=== PATIENT | female | born 1960 | race African-American/Black ===

== ENCOUNTER 2017-07-25 17:58 | Inpatient (IN) | payer MEDICARE ==
[2017-07-25] MEDS ORDERED: Guaifenesin DM 100-10/5 ML UDCUP PO PRN (20:01)
[2017-07-25] MEDS ORDERED: Acetaminophen 325 MG TAB PO PRN (20:01)
[2017-07-25] MEDS ORDERED: HYDROcodone/Acetaminophen 5/325 mg Tablet PO PRN (20:01)
[2017-07-25] MEDS ORDERED: Enoxaparin Sodium 40 MG/0.4 ML SYRINGE SC SCH (20:15)
[2017-07-25] MEDS ORDERED: Dextrose 5% in Water 1,000 ML IV PRN (20:44)
[2017-07-25] MEDS ORDERED: Dextrose 50% Abboject 50 ML SYRINGE IVP PRN (20:44)
[2017-07-25] MEDS: hydrALAZINE 25 MG TAB PO SCH (21:04)
[2017-07-25] MEDS: Famotidine 20 MG TAB PO SCH (21:04)
[2017-07-25] MEDS: Isosorbide Dinitrate 20 MG TAB PO SCH (21:04)
[2017-07-25] MEDS: Losartan Potassium 25 MG TAB PO SCH (21:05)
[2017-07-25] MEDS: Carvedilol 25 MG TAB PO SCH (21:05)
[2017-07-25] MEDS: Insulin NPH/Reg Insulin Hm 300 UNITS/3 ML VIAL SC SCH (21:05)
[2017-07-25] MEDS: Furosemide 40 MG/4 ML VIAL SLOW IVP SCH (22:05)
[2017-07-26 05:28] LABS: Band 6 % (5-11); Hemoglobin 10.8 g/dL (12.0-16.0); Lymphocytes 20 % (21-51); MDiff Complete? YES; Mean Corpuscular HGB CONC 31.5 g/dL (32.0-36.0); Mean Corpuscular Hemoglobin 31.5 pg (27.0-31.0); Mean Corpuscular Volume 99.9 fl (81.0-99.0); Mean Platelet Volume 9.5 fL (7.4-10.4); Monocytes 5 % (0-10); Neutrophil 69 % (42-75); PLT Morphology Comment Appears Adequate; Platelet Count 142 thou/uL (130-400); RBC Distribution Width 14.2 % (11.5-14.5); Red Blood Cell (RBC) Count 3.43 mill/uL (4.20-5.40); White Blood Cell (WBC) Count 7.2 thou/uL (4.8-10.8)
[2017-07-26 05:46] LABS: Anion Gap 12 mmol/L (10-20); BUN (Urea Nitrogen) 26 mg/dL (9.8-20.1); Calc. Creatinine Clearance 72 mL/min (70-130); Calcium 9.5 mg/dL (7.8-10.44); Carbon Dioxide 33 mmol/L (22-29); Chloride 99 mmol/L (98-107); Estimated GFR-MDRD 39; Glucose 222 mg/dL (70-105); Potassium 4.2 mmol/L (3.5-5.1); Sodium 140 mmol/L (136-145)
[2017-07-26] MEDS: Furosemide 40 MG/4 ML VIAL SLOW IVP SCH ×3 (05:56→22:31)
[2017-07-26] MEDS ORDERED: Furosemide 40 MG/4 ML VIAL SLOW IVP SCH (06:00)
--- NOTE | 2017-07-26 06:43 | HP ---
CHIEF COMPLAINT: Shortness of breath and transfer from the hospital in the [facility]. HISTORY OF PRESENT ILLNESS: She is a 57-year-old woman with a history of congestive heart failure status post AICD. She presented to the [facility] over there with a complaint of shortness of breath and flu-like symptoms and fever for the last few days. The patient has not been taking her furosemide and aldactonebecause she is not feeling good for the last few days and denies any gaining weight. When she went to the ER over there, her pulse was 110, blood pressure 96/74, temperature is 101.8, respirations 26, 100% saturation on room air. Over there, she was admitted for diagnosed pneumonia, possible congestive heart failure, pneumonia with acute on chronic congestive heart failure. She was given IV Levaquin, IV Lasix, and transferred here for the further management. CURRENT MEDICATIONS TAKING AT HOME: Hydralazine 50 mg, Imdur 30 mg daily, losartan 25 daily, Aldactone 25 daily, torsemide 20 mg daily. ALLERGIES: She is allergic to PENICILLIN caused itching. PRIMARY CARE PHYSICIAN: Evelyn Quick M.D. FAMILY HISTORY: reviewed and not pertinent to current illness SOCIAL HISTORY: She denies alcohol, drugs, or smoke use. REVIEW OF SYSTEMS: Constitutional: She complains of some fever, malaise, weight gain. HEENT: No ear discharge. No vision problem. Respiratory: She has a cough and shortness of breath with wheezing. Cardiovascular: she is complaining of short of breath. No chest pain. PND, orthopnea is present. Gastrointestinal: She denies any nausea, vomiting, abdominal pain. Extremities : No any pain. Neurological: She denies any headache, no dizziness. Skin: No rash. PHYSICAL EXAMINATION: GENERAL: She is a middle-aged woman, not in distress. Morbidly obese. VITAL SIGNS: Pulse 102, temperature 99.3, saturation are 93 on room air, and blood pressure 198/111. HEENT: Head is atraumatic and normocephalic.EOMI NECK: Supple, no JVD, no thyromegaly,Trachea in midline and no LN janusz CHEST: Diminished breath sounds. coarse crackles at bases CARDIOVASCULAR: S1, S2 audible. No S3 or S4. ABDOMEN: Soft. Bowel sounds audible. EXTREMITIES: +2 pedal edema. NEUROLOGIC: Alert and oriented x3. No focal deficit. LABORATORY DATA: Urine shows urine negative. Her EKG shows sinus tachycardia with left anterior fascicular block. WBC 11.3, hematocrit 37.6, hemoglobin 12.1 , platelets 175. Sodium 133, potassium 5. BUN 20, creatinine 1.2, AST 35, ALT 42. Flu test negative. Troponin is 0.07. Urine clear. Chest x-ray negative. ASSESSMENT AND PLAN: 1. Fever with possible cough with shortness of breath, possible bronchitis. We will plan to give intravenous Levaquin daily and oxygen on admission and Mucinex DM p.r.n. 2. History of congestive heart failure due to chronic congestive failure. Fluid restriction, daily weight, Lasix, echocardiogram, monitor intake and output. 3. Hypertension. We will continue Cozaar and Imdur. 4. Deep venous thrombosis prophylaxis with Lovenox. MTDD
[2017-07-26] MEDS: Losartan Potassium 25 MG TAB PO SCH ×2 (09:05→22:20)
[2017-07-26] MEDS: Carvedilol 25 MG TAB PO SCH ×2 (09:05→20:43)
[2017-07-26] MEDS: hydrALAZINE 25 MG TAB PO SCH ×2 (09:05→22:18)
[2017-07-26] MEDS: Famotidine 20 MG TAB PO SCH ×2 (09:05→20:42)
[2017-07-26] MEDS: Spironolactone 25 MG TAB PO SCH (09:05)
[2017-07-26] MEDS: Aspirin 81 mg Enteric Coated Tablet PO SCH (09:05)
[2017-07-26] MEDS: Isosorbide Dinitrate 20 MG TAB PO SCH ×2 (09:12→22:20)
[2017-07-26] MEDS: Insulin NPH/Reg Insulin Hm 300 UNITS/3 ML VIAL SC SCH ×2 (09:59→22:19)
[2017-07-26] MEDS: HumaLOG 300 UNITS/3 ML VIAL SC PRN ×3 (10:00→17:42)
--- NOTE | 2017-07-26 12:42 | PDOC.PN ---
- Subjective Encounter Start Date: 07/26/17 Encounter Start Time: 12:40 Subjective: Pt seen and examined for Bronchitis, CHF -: feels better, c/o wheezing, low grade fever - Objective Resuscitation Status: Resuscitation Status FULL:Full Resuscitation MAR Reviewed: Yes Vital Signs & Weight: Vital Signs (12 hours) Temp Pulse Resp BP BP BP Pulse Ox 07/26/17 11:59 98.7 F 84 20 120/73 95 07/26/17 10:40 81 20 97 07/26/17 10:00 99.8 F H 87 20 96 07/26/17 09:05 87 129/72 07/26/17 09:01 99.8 F H 87 20 129/72 96 07/26/17 04:00 99.3 F 84 18 130/68 97 Weight Weight 265 lb 6.4 oz I&O: 07/25/17 07/26/17 07/27/17 06:59 06:59 06:59 Intake Total 240 Output Total 500 Balance -260 Result Diagrams: 07/26/17 04:30 07/26/17 04:30 Additional Labs: Accuchecks 07/26/17 07/26/17 07/26/17 11:44 09:16 05:56 POC Glucose 171 H 161 H 214 H 07/25/17 20:31 POC Glucose 303 H Phys Exam - Physical Examination HEENT: PERRLA, moist MMs, sclera anicteric, TM's clear, oral pharynx no lesions , 2+ tonsils Neck: no nodes, no JVD, supple, full ROM Respiratory: wheezing present Diminished breath sounds, few crakles Cardiovascular: RRR, no significant murmur, no rub, gallop, irregular Gastrointestinal: soft, non-tender, no distention, positive bowel sounds Musculoskeletal: no edema, pulses present, edema present Neurological: non-focal, normal sensation, moves all 4 limbs Psychiatric: normal affect, A&O x 3 Dx/Plan - Plan continue antibiotics, DVT proph w/lovenox 1) Bronchitis, Possible Pneumonia, IV Levaquin -: 2Contact with Flu, tamiflu 30mg po bid for 5 vdays -: 3 Acute on chronic CHF, Diuretics, daily weight and fluid restriction, Echo -: 4Type 2 DM, on insulin -: 5DVT Prophylaxis, Lovenox * . Review of Systems - Review of Systems Eyes: negative: Pain, Vision Change, Conjunctivae Inflammation, Eyelid Inflammation, Redness, Other ENT: negative: Ear Pain, Ear Discharge, Nose Pain, Nose Discharge, Nose Congestion, Mouth Pain, Mouth Swelling, Throat Pain, Throat Swelling, Other Respiratory: Cough, Shortness of Breath, Sputum, Wheezing Cardiovascular: negative: chest pain, palpitations, orthopnea, paroxysmal nocturnal dyspnea, edema, light headedness, other Gastrointestinal: negative: Nausea, Vomiting, Abdominal Pain, Diarrhea, Constipation, Melena, Hematochezia, Other Genitourinary: negative: Dysuria, Frequency, Incontinence, Hematuria, Retention , Other Musculoskeletal: negative: Neck Pain, Shoulder Pain, Arm Pain, Back Pain, Hand Pain, Leg Pain, Foot Pain, Other - Medications/Allergies Allergies/Adverse Reactions: Allergies Allergy/AdvReac Type Severity Reaction Status Date / Time penicillin V Allergy Verified 07/25/17 22:19 Medications: Current Medications Acetaminophen (Tylenol) 650 mg PO Q4H PRN PRN Reason: Headache/Fever or Pain Hydrocodone Bitart/Acetaminophen ([place] 5/325) 1 tab PO Q4H PRN PRN Reason: Moderate Pain (4-6) Albuterol/Ipratropium (Duoneb) 3 ml NEB Q4H PRN PRN Reason: SOB &/or Wheezing Aspirin (Ecotrin) 81 mg PO DAILY [facility] Last Admin: 07/26/17 09:05 Dose: 81 mg Carvedilol (Coreg) 25 mg PO BID [facility] Last Admin: 07/26/17 09:05 Dose: 25 mg Dextrose/Water (Dextrose 50%) 25 gm IVP PRN PRN PRN Reason: HYPOGLYCEMIA PROTOCOL Famotidine (Pepcid) 20 mg PO BID [facility] Last Admin: 07/26/17 09:05 Dose: 20 mg Furosemide (Lasix) 40 mg SLOW IVP Q8HR [facility] Last Admin: 07/26/17 05:56 Dose: 40 mg Glucagon (Glucagon) 1 mg IM PRN PRN PRN Reason: HYPOGLYCEMIA PROTOCOL Guaifenesin/Dextromethorphan (Robitussin Dm) 15 ml PO Q4H PRN PRN Reason: Cough Hydralazine HCl (Apresoline) 50 mg PO BID [facility] Last Admin: 07/26/17 09:05 Dose: 50 mg Dextrose/Water (D5w) 1,000 mls @ 0 mls/hr IV INF PRN; As Directed PRN Reason: HYPOGLYCEMIA PROTOCOL Levofloxacin 750 mg/ Device 150 mls @ 100 mls/hr IVPB Q24HR [facility] Insulin Human Isoph/Insulin Regular (Humulin 70/30) 50 units SC BID [facility] Last Admin: 07/26/17 09:59 Dose: Not Given Insulin Human Lispro (Humalog) 0 units SC .MILD SLIDING SCALE PRN; Protocol PRN Reason: MILD SLIDING SCALE Last Admin: 07/26/17 12:03 Dose: 2 unit Insulin Human Lispro (Humalog) 0 units SC .BEDTIME SLIDING SC PRN; Protocol PRN Reason: BEDTIME SLIDING SCALE Isosorbide Dinitrate (Isordil) 30 mg PO BID [facility] Last Admin: 07/26/17 09:12 Dose: 30 mg Losartan Potassium (Cozaar) 25 mg PO BID [facility] Last Admin: 07/26/17 09:05 Dose: 25 mg Sodium Chloride (Flush - Normal Saline) 10 ml IVF Q12HR [facility] Last Admin: 07/26/17 09:16 Dose: 10 ml Sodium Chloride (Flush - Normal Saline) 10 ml IVF PRN PRN PRN Reason: Saline Flush Last Admin: 07/26/17 05:56 Dose: 10 ml Spironolactone (Aldactone) 25 mg PO QAM-WM [facility] Last Admin: 07/26/17 09:05 Dose: 25 mg
[2017-07-26] MEDS ORDERED: Oseltamivir 6 MG/ML ORAL SUSP PO SCH (13:00)
[2017-07-26] MEDS: Enoxaparin Sodium 40 MG/0.4 ML SYRINGE SC SCH (20:42)
[2017-07-26] MEDS: Oseltamivir 6 MG/ML ORAL SUSP PO SCH (22:31)
[2017-07-27] MEDS: Furosemide 40 MG/4 ML VIAL SLOW IVP SCH (05:31)
--- NOTE | 2017-07-27 08:41 | PDOC.PN ---
- Subjective Encounter Start Date: 07/27/17 Encounter Start Time: 09:00 Subjective: Feeling a little better. Still with cough and SOB. No fever/chills. - Objective Resuscitation Status: Resuscitation Status FULL:Full Resuscitation MAR Reviewed: Yes Vital Signs & Weight: Vital Signs (12 hours) Temp Pulse Resp BP Pulse Ox 07/27/17 05:29 98 07/27/17 04:00 98.4 F 69 18 118/73 95 07/26/17 22:18 95 07/26/17 22:15 82 115/70 Weight Weight 263 lb I&O: 07/26/17 07/27/17 07/28/17 06:59 06:59 06:59 Intake Total 240 1300 Output Total 500 2050 Balance -260 -750 Result Diagrams: 07/26/17 04:30 07/27/17 08:44 Additional Labs: Accuchecks 07/27/17 07/26/17 07/26/17 06:15 21:00 16:44 POC Glucose 231 H 209 H 261 H 07/26/17 07/26/17 11:44 09:16 POC Glucose 171 H 161 H Phys Exam - Physical Examination HEENT: moist MMs Respiratory: no wheezing, no rales, no rhonchi Cardiovascular: RRR Gastrointestinal: soft, positive bowel sounds Neurological: non-focal, moves all 4 limbs Psychiatric: normal affect, A&O x 3 Dx/Plan (1) Pneumonia Code(s): J18.9 - PNEUMONIA, UNSPECIFIED ORGANISM Status: Acute Comment: check CXR here, on Levaquin (2) Systolic CHF Code(s): I50.20 - UNSPECIFIED SYSTOLIC (CONGESTIVE) HEART FAILURE Status: Acute Qualifiers: Congestive heart failure chronicity: chronic Qualified Code(s): I50.22 - Chronic systolic (congestive) heart failure Comment: ECHO pending, check BNP, d/c IV lasix as Creatinine bumped over baseline (3) Influenza Code(s): J11.1 - FLU DUE TO UNIDENTIFIED INFLUENZA VIRUS W OTH RESP MANIFEST Status: Acute Comment: flu contact now with fever and URI, on Tamiflu (4) CKD (chronic kidney disease) stage 3, GFR 30-59 ml/min Status: Chronic (5) DM type 2 (diabetes mellitus, type 2) Status: Chronic Qualifiers: Diabetes mellitus complication detail: with chronic kidney disease Diabetes mellitus terminal worker insulin use: without terminal worker use (6) Morbid obesity Code(s): E66.01 - MORBID (SEVERE) OBESITY DUE TO EXCESS CALORIES Status: Chronic - Plan cont current plan of care, continue antibiotics, PT/OT, DVT proph w/lovenox, DVT proph w/SCDs * . - Discharge Day Encounter end time: 09:30
[2017-07-27] MEDS: Spironolactone 25 MG TAB PO SCH (08:55)
[2017-07-27] MEDS: Aspirin 81 mg Enteric Coated Tablet PO SCH (08:55)
[2017-07-27] MEDS: Carvedilol 25 MG TAB PO SCH ×2 (08:55→22:19)
[2017-07-27] MEDS: Losartan Potassium 25 MG TAB PO SCH ×2 (08:57→22:18)
[2017-07-27] MEDS: Isosorbide Dinitrate 20 MG TAB PO SCH ×2 (08:57→22:18)
[2017-07-27] MEDS: Oseltamivir 6 MG/ML ORAL SUSP PO SCH ×2 (08:57→22:23)
[2017-07-27] MEDS: hydrALAZINE 25 MG TAB PO SCH ×2 (08:57→22:20)
[2017-07-27] MEDS ORDERED: Insulin NPH/Reg Insulin Hm 300 UNITS/3 ML VIAL SC SCH (09:00)
[2017-07-27 09:12] LABS: Anion Gap 15 mmol/L (10-20); BUN (Urea Nitrogen) 40 mg/dL (9.8-20.1); Calc. Creatinine Clearance 55 mL/min (70-130); Calcium 9.4 mg/dL (7.8-10.44); Carbon Dioxide 28 mmol/L (22-29); Chloride 98 mmol/L (98-107); Estimated GFR-MDRD 29; Glucose 220 mg/dL (70-105); Potassium 4.3 mmol/L (3.5-5.1); Sodium 137 mmol/L (136-145)
[2017-07-27] MEDS: Torsemide 20 MG TAB PO SCH ×2 (09:35→22:21)
--- NOTE | 2017-07-27 11:47 | RAD ---
PA AND LATERAL VIEWS CHEST: HISTORY: Pneumonia. COMPARISON: 10/16/2016 FINDINGS: The heart is enlarged. The left-sided AICD remains in place. There is mild pulmonary vascular conge stion. No lobar consolidation, pneumothoraces, or large effusions are seen. POS: [facility]
[2017-07-27] MEDS: HumaLOG 300 UNITS/3 ML VIAL SC PRN ×2 (13:19→22:35)
[2017-07-27] MEDS: Insulin NPH/Reg Insulin Hm 300 UNITS/3 ML VIAL SC SCH (17:18)
[2017-07-27] MEDS: Enoxaparin Sodium 40 MG/0.4 ML SYRINGE SC SCH (22:20)
[2017-07-28 05:34] LABS: #Basophils 0.1 thou/uL (0.0-0.2); #Lymphocytes 2.1 thou/uL (1.20-3.40); #Monocytes 0.7 thou/uL (0.11-0.59); #Neutrophils 2.8 thou/uL (1.40-6.50); %Basophils 1.7 % (0.0-1.0); %Eosinophils 0.2 % (0.0-10.0); %Lymphocytes 36.2 % (21.0-51.0); %Monocytes 12.8 % (0.0-10.0); Hemoglobin 11.3 g/dL (12.0-16.0); Mean Corpuscular HGB CONC 31.4 g/dL (32.0-36.0); Mean Corpuscular Hemoglobin 31.7 pg (27.0-31.0); Mean Platelet Volume 9.3 fL (7.4-10.4); Platelet Count 146 thou/uL (130-400); RBC Distribution Width 14.1 % (11.5-14.5); Red Blood Cell (RBC) Count 3.56 mill/uL (4.20-5.40); White Blood Cell (WBC) Count 5.7 thou/uL (4.8-10.8)
[2017-07-28 05:42] LABS: Anion Gap 15 mmol/L (10-20); BUN (Urea Nitrogen) 53 mg/dL (9.8-20.1); Calc. Creatinine Clearance 46 mL/min (70-130); Calcium 9.4 mg/dL (7.8-10.44); Carbon Dioxide 28 mmol/L (22-29); Chloride 97 mmol/L (98-107); Estimated GFR-MDRD 23; Glucose 112 mg/dL (70-105); Potassium 4.1 mmol/L (3.5-5.1); Sodium 136 mmol/L (136-145)
--- NOTE | 2017-07-28 07:34 | PDOC.PN ---
- Subjective Encounter Start Date: 07/28/17 Encounter Start Time: 07:32 Subjective: seen and examined feeling better - Objective Resuscitation Status: Resuscitation Status FULL:Full Resuscitation Vital Signs & Weight: Vital Signs (12 hours) Temp Pulse Resp BP BP Pulse Ox 07/28/17 05:15 98 07/28/17 04:00 98.7 F 78 18 101/55 L 95 07/27/17 22:20 79 132/75 07/27/17 20:00 98.2 F 79 20 132/75 98 Weight Weight 263 lb I&O: 07/27/17 07/28/17 07/29/17 06:59 06:59 06:59 Intake Total 1300 150 Output Total 2049 1200 Balance -750 -1050 Result Diagrams: 07/28/17 04:16 07/28/17 04:16 Additional Labs: Accuchecks 07/28/17 07/27/17 07/27/17 06:27 20:42 17:22 POC Glucose 101 212 H 273 H 07/27/17 11:43 POC Glucose 254 H Phys Exam - Physical Examination Constitutional: NAD HEENT: PERRLA, moist MMs, sclera anicteric, TM's clear Neck: no nodes, no JVD, supple, full ROM Respiratory: no wheezing, no rales, no rhonchi Cardiovascular: RRR, no significant murmur, no rub Gastrointestinal: soft, non-tender, no distention, positive bowel sounds Musculoskeletal: no edema, pulses present Dx/Plan (1) Influenza Code(s): J11.1 - FLU DUE TO UNIDENTIFIED INFLUENZA VIRUS W OTH RESP MANIFEST Status: Acute Comment: flu contact now with fever and URI, on Tamiflu (2) Pneumonia Code(s): J18.9 - PNEUMONIA, UNSPECIFIED ORGANISM Status: Acute Comment: check CXR here, on Levaquin (3) Systolic CHF Code(s): I50.20 - UNSPECIFIED SYSTOLIC (CONGESTIVE) HEART FAILURE Status: Acute Qualifiers: Congestive heart failure chronicity: chronic Qualified Code(s): I50.22 - Chronic systolic (congestive) heart failure Comment: ECHO pending, check BNP, d/c IV lasix as Creatinine bumped over baseline (4) Acute exacerbation of CHF (congestive heart failure) Code(s): I50.9 - HEART FAILURE, UNSPECIFIED Status: Acute Qualifiers: Congestive heart failure type: systolic Qualified Code(s): I50.23 - Acute on chronic systolic (congestive) heart failure Comment: ef of around 25% (5) Demand ischemia of myocardium Code(s): I24.8 - OTHER FORMS OF ACUTE ISCHEMIC HEART DISEASE Status: Acute (6) CKD (chronic kidney disease) stage 3, GFR 30-59 ml/min Status: Chronic (7) DM type 2 (diabetes mellitus, type 2) Status: Chronic Qualifiers: Diabetes mellitus complication detail: with chronic kidney disease Diabetes mellitus usp insulin use: without usp use (8) Morbid obesity Code(s): E66.01 - MORBID (SEVERE) OBESITY DUE TO EXCESS CALORIES Status: Chronic (9) OPAL (acute kidney injury) Code(s): N17.9 - ACUTE KIDNEY FAILURE, UNSPECIFIED Status: Acute - Plan continue antibiotics, social work job titles, respiratory therapy change levaquine to po -: creatinine [id number] diuresis * .
[2017-07-28] MEDS: Insulin NPH/Reg Insulin Hm 300 UNITS/3 ML VIAL SC SCH ×2 (09:17→18:07)
[2017-07-28] MEDS: Spironolactone 25 MG TAB PO SCH (09:18)
[2017-07-28] MEDS: hydrALAZINE 25 MG TAB PO SCH ×2 (09:18→21:54)
[2017-07-28] MEDS: Carvedilol 25 MG TAB PO SCH ×2 (09:18→21:54)
[2017-07-28] MEDS: Torsemide 20 MG TAB PO SCH ×2 (09:18→21:56)
[2017-07-28] MEDS: Aspirin 81 mg Enteric Coated Tablet PO SCH (09:19)
[2017-07-28] MEDS: Isosorbide Dinitrate 20 MG TAB PO SCH ×2 (09:19→21:55)
[2017-07-28] MEDS: Oseltamivir 6 MG/ML ORAL SUSP PO SCH ×2 (09:19→22:00)
[2017-07-28] MEDS: Losartan Potassium 25 MG TAB PO SCH ×2 (09:19→21:55)
[2017-07-28] MEDS: Enoxaparin Sodium 40 MG/0.4 ML SYRINGE SC SCH (21:10)
--- NOTE | 2017-07-28 23:07 | RAD ---
AP VIEW OF THE CHEST: INDICATIONS: Shortness of breath. COMPARISON: 07/27/2017 IMPRESSION: Cardiomegaly with pulmonary vascular congestion persists. No focal consolidation is evident. AICD i s similar appearing. No pneumothorax is noted. POS: [facility]
[2017-07-29] MEDS: Spironolactone 25 MG TAB PO SCH (09:12)
[2017-07-29] MEDS: hydrALAZINE 25 MG TAB PO SCH ×2 (09:13→22:53)
[2017-07-29] MEDS: Aspirin 81 mg Enteric Coated Tablet PO SCH (09:13)
[2017-07-29] MEDS: Isosorbide Dinitrate 20 MG TAB PO SCH ×2 (09:13→22:53)
[2017-07-29] MEDS: Carvedilol 25 MG TAB PO SCH ×2 (09:13→22:53)
[2017-07-29] MEDS: Losartan Potassium 25 MG TAB PO SCH (09:14)
[2017-07-29] MEDS: Torsemide 20 MG TAB PO SCH (09:14)
[2017-07-29] MEDS: Oseltamivir 6 MG/ML ORAL SUSP PO SCH ×2 (09:14→23:03)
[2017-07-29] MEDS: Insulin NPH/Reg Insulin Hm 300 UNITS/3 ML VIAL SC SCH ×2 (09:19→16:45)
--- NOTE | 2017-07-29 13:43 | PDOC.PN ---
- Subjective Encounter Start Date: 07/29/17 Encounter Start Time: 09:50 Subjective: awake, not fully oriented -: no sob - Objective Resuscitation Status: Resuscitation Status FULL:Full Resuscitation MAR Reviewed: Yes Vital Signs & Weight: Vital Signs (12 hours) Temp Pulse Resp BP BP Pulse Ox 07/29/17 12:00 97.7 F 77 18 131/62 100 07/29/17 09:13 73 07/29/17 09:05 98.0 F 73 20 138/82 100 07/29/17 04:00 98.0 F 74 20 135/71 97 Weight Weight 274 lb 11.2 oz I&O: 07/28/17 07/29/17 07/30/17 06:59 06:59 06:59 Intake Total 490 1120 Output Total 1775 750 Balance -1285 370 Result Diagrams: 07/28/17 04:16 07/28/17 04:16 Additional Labs: Accuchecks 07/29/17 07/29/17 07/28/17 10:40 06:30 16:37 POC Glucose 126 H 163 H 180 H Phys Exam - Physical Examination HEENT: PERRLA, moist MMs Neck: no JVD, supple Respiratory: no wheezing rales+ Cardiovascular: RRR, no significant murmur Gastrointestinal: soft, non-tender, positive bowel sounds Musculoskeletal: pulses present, edema present Neurological: non-focal, moves all 4 limbs Dx/Plan (1) OPAL (acute kidney injury) Code(s): N17.9 - ACUTE KIDNEY FAILURE, UNSPECIFIED Status: Acute (2) Influenza Code(s): J11.1 - FLU DUE TO UNIDENTIFIED INFLUENZA VIRUS W OTH RESP MANIFEST Status: Acute Comment: on Tamiflu (3) Pneumonia Code(s): J18.9 - PNEUMONIA, UNSPECIFIED ORGANISM Status: Acute Comment: on Levaquin (4) Acute exacerbation of CHF (congestive heart failure) Code(s): I50.9 - HEART FAILURE, UNSPECIFIED Status: Acute Qualifiers: Congestive heart failure type: systolic Qualified Code(s): I50.23 - Acute on chronic systolic (congestive) heart failure Comment: ef of around 25% (5) CKD (chronic kidney disease) stage 3, GFR 30-59 ml/min Status: Chronic (6) DM type 2 (diabetes mellitus, type 2) Status: Chronic Qualifiers: Diabetes mellitus complication detail: with chronic kidney disease Diabetes mellitus termite helper insulin use: without nursing home use Chronic kidney disease stage: stage 3 (moderate) (7) Morbid obesity Code(s): E66.01 - MORBID (SEVERE) OBESITY DUE TO EXCESS CALORIES Status: Chronic - Plan is on tamiflu, levaquin -: off diuretics, opal -: on coreg, hydralazine, isordil -: CT brain if still confused by this evening -: PT to mobilize as tolerated * . Review of Systems - Medications/Allergies Allergies/Adverse Reactions: Allergies Allergy/AdvReac Type Severity Reaction Status Date / Time penicillin V Allergy Verified 07/25/17 22:19 Medications: Current Medications Acetaminophen (Tylenol) 650 mg PO Q4H PRN PRN Reason: Headache/Fever or Pain Hydrocodone Bitart/Acetaminophen ([place] 5/325) 1 tab PO Q4H PRN PRN Reason: Moderate Pain (4-6) Albuterol/Ipratropium (Duoneb) 3 ml NEB Q4H PRN PRN Reason: SOB &/or Wheezing Last Admin: 07/28/17 11:45 Dose: 3 ml Aspirin (Ecotrin) 81 mg PO DAILY [facility] Last Admin: 07/29/17 09:13 Dose: 81 mg Carvedilol (Coreg) 25 mg PO BID [facility] Last Admin: 07/29/17 09:13 Dose: 25 mg Dextrose/Water (Dextrose 50%) 25 gm IVP PRN PRN PRN Reason: HYPOGLYCEMIA PROTOCOL Enoxaparin Sodium (Lovenox) 40 mg SC QPM [facility] Last Admin: 07/28/17 21:10 Dose: 40 mg Glucagon (Glucagon) 1 mg IM PRN PRN PRN Reason: HYPOGLYCEMIA PROTOCOL Guaifenesin/Dextromethorphan (Robitussin Dm) 15 ml PO Q4H PRN PRN Reason: Cough Hydralazine HCl (Apresoline) 50 mg PO BID [facility] Last Admin: 07/29/17 09:13 Dose: 50 mg Dextrose/Water (D5w) 1,000 mls @ 0 mls/hr IV INF PRN; As Directed PRN Reason: HYPOGLYCEMIA PROTOCOL Insulin Human Isoph/Insulin Regular (Humulin 70/30) 50 units SC BID[facility] Last Admin: 07/29/17 09:19 Dose: Not Given Insulin Human Lispro (Humalog) 0 units SC .MILD SLIDING SCALE PRN; Protocol PRN Reason: MILD SLIDING SCALE Last Admin: 07/27/17 13:19 Dose: 4 unit Insulin Human Lispro (Humalog) 0 units SC .BEDTIME SLIDING SC PRN; Protocol PRN Reason: BEDTIME SLIDING SCALE Last Admin: 07/27/17 22:35 Dose: 2 unit Isosorbide Dinitrate (Isordil) 30 mg PO BID [facility] Last Admin: 07/29/17 09:13 Dose: 30 mg Levofloxacin (Levaquin) 750 mg PO Q2D@0600 [facility] Last Admin: 07/29/17 06:05 Dose: 750 mg Losartan Potassium (Cozaar) 25 mg PO BID [facility] Last Admin: 07/29/17 09:14 Dose: 25 mg Oseltamivir Phosphate (Tamiflu) 30 mg PO BID [facility] Stop: 07/30/17 21:01 Last Admin: 07/29/17 09:14 Dose: 30 mg Sodium Chloride (Flush - Normal Saline) 10 ml IVF Q12HR [facility] Last Admin: 07/29/17 09:14 Dose: Not Given Sodium Chloride (Flush - Normal Saline) 10 ml IVF PRN PRN PRN Reason: Saline Flush Last Admin: 07/26/17 14:27 Dose: 10 ml Spironolactone (Aldactone) 25 mg PO QAM-WM [facility] Last Admin: 07/29/17 09:12 Dose: 25 mg Torsemide (Demadex) 20 mg PO BID [facility] Last Admin: 07/29/17 09:14 Dose: 20 mg
--- NOTE | 2017-07-29 18:34 | CT ---
CT OF THE BRAIN WITHOUT CONTRAST: Indication: History of disorientation and flu. Comparison: None. FINDINGS: No acute infarction, hemorrhage, or hydrocephalus is present. The septum pellucidum and third ventric le are midline. Extracranial soft tissues are within normal limits. Mastoid air cells are clear. Visu alized paranasal sinuses are clear. IMPRESSION: No acute intracranial abnormality. POS: [facility]
--- NOTE | 2017-07-29 19:13 | CON ---
DATE OF CONSULTATION: 07/29/2017 CONSULTING PHYSICIAN: Dr. Shaw. REASON FOR CONSULTATION: Acute kidney injury. REASON FOR ADMISSION: Shortness of breath. HISTORY OF PRESENT ILLNESS: A 57-year-old female with history of congestive heart failure, AICD placement, and hypertension, who came to the hospital with shortness of breath and was evaluated and treated for CHF exacerbation. This patient was found to have creatinine elevation. This morning, it was found to be 2.5. Nephrology was consulted. Diuretics were held. The patient is feeling slightly better. No fever or chills. No nausea or vomiting. No chest pain reported. PAST MEDICAL HISTORY: Positive for congestive heart failure, hypertension. PAST SURGICAL HISTORY: AICD placement. HOME MEDICATIONS: Include losartan, Demadex, Coreg, aspirin, isosorbide, hydralazine, spironolactone. ALLERGIES: PENICILLIN. SOCIAL HISTORY: No smoking, alcohol, or drugs. FAMILY HISTORY: No history of kidney disease. REVIEW OF SYSTEMS: The following complete review of systems was negative, unless otherwise mentioned in the HPI or below: Constitutional: Weight loss or gain, ability to conduct usual activities. Skin: Rash, itching. Eyes: Double vision, pain. ENT/Mouth: Nose bleeding, neck stiffness, pain, tenderness. Cardiovascular: Palpitations, dyspnea on exertion, orthopnea. Respiratory: Shortness of breath, wheezing, cough, hemoptysis, fever or night sweats. Gastrointestinal: Poor appetite, abdominal pain, heartburn, nausea, vomiting, constipation, or diarrhea. Genitourinary: Urgency, frequency, dysuria, nocturia. Musculoskeletal: Pain, swelling. Neurologic/Psychiatric: Anxiety, depression. Allergy/Immunologic: Skin rash, bleeding tendency. PHYSICAL EXAMINATION: GENERAL: This is a well-built female, in no apparent distress. VITAL SIGNS: Temperature 97.7, pulse 77, respiratory rate 18, blood pressure 131/62. Musculoskeletal : No tenderness, 1+ edema HEENT: Atraumatic normocephalic Neck: Supple Cardiovascular: S1S2 heard, Rate and rhythm regular Respiratory: Clear to auscultation Gastrointestinal: Abdomen is soft Dermatologic : No skin rash Neurologic: slow to react Psychiatric: Mood and affect normal LABORATORY DATA: Potassium is 4.1, BUN 53, creatinine is 2.5. ASSESSMENT AND PLAN: 1. Acute kidney injury, most likely cardiorenal syndrome. Agree with holding diuretics for now. 2. Anemia. 3. Cardiorenal syndrome. 4. Edema, controlled. 5. Hypertension. Plan is to hold diuretics. Avoid nephrotoxins, renally dose all the medicines. Follow with Cardiology. Consider changing Lovenox to heparin. Given the acute kidney injury, agree with holding ARBs and diuretics. Thank you for the consult. We will follow. [facility]
[2017-07-29] MEDS: Enoxaparin Sodium 40 MG/0.4 ML SYRINGE SC SCH (22:54)
[2017-07-30] MEDS: Insulin NPH/Reg Insulin Hm 300 UNITS/3 ML VIAL SC SCH ×2 (08:30→17:39)
[2017-07-30] MEDS: Aspirin 81 mg Enteric Coated Tablet PO SCH (09:22)
[2017-07-30] MEDS: Carvedilol 25 MG TAB PO SCH ×2 (09:23→10:52)
[2017-07-30] MEDS: hydrALAZINE 25 MG TAB PO SCH ×2 (09:23→21:41)
[2017-07-30] MEDS: Isosorbide Dinitrate 20 MG TAB PO SCH ×2 (09:23→21:41)
[2017-07-30] MEDS: Oseltamivir 6 MG/ML ORAL SUSP PO SCH ×2 (09:23→21:41)
[2017-07-30 10:23] LABS: #Basophils 0.1 thou/uL (0.0-0.2); #Monocytes 0.7 thou/uL (0.11-0.59); %Basophils 1.5 % (0.0-1.0); %Eosinophils 0.2 % (0.0-10.0); %Lymphocytes 29.3 % (21.0-51.0); %Monocytes 10.8 % (0.0-10.0); %Neutrophils 58.2 % (42.0-75.0); Hemoglobin 12.3 g/dL (12.0-16.0); Mean Corpuscular HGB CONC 32.2 g/dL (32.0-36.0); Mean Corpuscular Hemoglobin 31.9 pg (27.0-31.0); Mean Corpuscular Volume 99.2 fl (81.0-99.0); Mean Platelet Volume 9.5 fL (7.4-10.4); Platelet Count 129 thou/uL (130-400); Red Blood Cell (RBC) Count 3.85 mill/uL (4.20-5.40); White Blood Cell (WBC) Count 6.8 thou/uL (4.8-10.8)
[2017-07-30 10:47] LABS: Base Excess (BEa) 1.5 mEq/L (0 (+/-) 2.5); CO2 Tension 59.4 mmHg (35.0-45.0); Calcium, Ionized 1.2 mmol/L (1.12-1.30); Hematocrit-ABG 40.7 % (36.0-47.0); O2 Tension (PaO2) 77.4 mmHg (80.0-100.0); pH, Arterial 7.31 (7.35-7.45)
[2017-07-30 10:50] LABS: Anion Gap 17 mmol/L (10-20); BUN (Urea Nitrogen) 73 mg/dL (9.8-20.1); Calc. Creatinine Clearance 52 mL/min (70-130); Calcium 9.6 mg/dL (7.8-10.44); Carbon Dioxide 27 mmol/L (22-29); Chloride 98 mmol/L (98-107); Estimated GFR-MDRD 26; Glucose 210 mg/dL (70-105); Potassium 4.9 mmol/L (3.5-5.1); Sodium 137 mmol/L (136-145)
[2017-07-30 10:53] LABS: Puncture Site RB
--- NOTE | 2017-07-30 12:11 | PDOC.PN ---
- Subjective Encounter Start Date: 07/30/17 Encounter Start Time: 11:00 Subjective: lethargic, snoring with nose stuffed up -: code kristofer called for unresponsiveness this am - Objective Resuscitation Status: Resuscitation Status FULL:Full Resuscitation MAR Reviewed: Yes Vital Signs & Weight: Vital Signs (12 hours) Temp Pulse Pulse Pulse Pulse Resp Resp 07/30/17 11:37 97.7 F 68 16 07/30/17 10:39 57 L 54 L 56 L 18 07/30/17 09:23 53 L 07/30/17 08:37 97.2 F L 53 L 18 07/30/17 04:00 97.5 F L 67 20 07/30/17 00:32 76 18 Resp Resp BP BP BP BP Pulse Ox 07/30/17 11:37 126/60 96 07/30/17 10:39 18 18 160/77 H 165/90 H 158/94 H 07/30/17 09:23 07/30/17 08:37 148/91 H 99 07/30/17 04:00 131/79 96 07/30/17 00:32 138/67 94 L Pulse Ox Pulse Ox Pulse Ox 07/30/17 11:37 07/30/17 10:39 96 97 98 07/30/17 09:23 07/30/17 08:37 07/30/17 04:00 07/30/17 00:32 Weight Weight 272 lb 6.4 oz I&O: 07/29/17 07/30/17 07/31/17 06:59 06:59 06:59 Intake Total 1120 1140 Output Total 750 600 Balance 370 540 Result Diagrams: 07/30/17 10:10 07/30/17 10:10 Additional Labs: Accuchecks 07/30/17 07/29/17 07/29/17 06:48 21:37 16:48 POC Glucose 209 H 211 H 184 H Phys Exam - Physical Examination HEENT: PERRLA, sclera anicteric Neck: no JVD, supple Respiratory: no wheezing, no rales rhonchi+ Cardiovascular: RRR, no significant murmur Gastrointestinal: soft, non-tender, positive bowel sounds Musculoskeletal: no edema, pulses present Neurological: non-focal, moves all 4 limbs Dx/Plan (1) OPAL (acute kidney injury) Code(s): N17.9 - ACUTE KIDNEY FAILURE, UNSPECIFIED Status: Acute (2) Influenza Code(s): J11.1 - FLU DUE TO UNIDENTIFIED INFLUENZA VIRUS W OTH RESP MANIFEST Status: Acute Comment: on Tamiflu (3) Pneumonia Code(s): J18.9 - PNEUMONIA, UNSPECIFIED ORGANISM Status: Acute Comment: on Levaquin (4) Acute exacerbation of CHF (congestive heart failure) Code(s): I50.9 - HEART FAILURE, UNSPECIFIED Status: Acute Qualifiers: Congestive heart failure type: systolic Qualified Code(s): I50.23 - Acute on chronic systolic (congestive) heart failure Comment: ef of around 25% (5) CKD (chronic kidney disease) stage 3, GFR 30-59 ml/min Status: Chronic (6) DM type 2 (diabetes mellitus, type 2) Status: Chronic Qualifiers: Diabetes mellitus complication detail: with chronic kidney disease Diabetes mellitus termite control servicer insulin use: without jail use Chronic kidney disease stage: stage 3 (moderate) (7) Morbid obesity Code(s): E66.01 - MORBID (SEVERE) OBESITY DUE TO EXCESS CALORIES Status: Chronic - Plan cautious hydration -: appears to be at her baseline cognitive function -: has sleep apnea, mild elevation in pco2 on ABG, to wear cpap when sleeping -: PT to mobilize pt more -: dc plan based on PT advice * . Review of Systems - Medications/Allergies Allergies/Adverse Reactions: Allergies Allergy/AdvReac Type Severity Reaction Status Date / Time penicillin V Allergy Verified 07/25/17 22:19 Medications: Current Medications Acetaminophen (Tylenol) 650 mg PO Q4H PRN PRN Reason: Headache/Fever or Pain Albuterol/Ipratropium (Duoneb) 3 ml NEB [id number] [facility] Aspirin (Ecotrin) 81 mg PO DAILY [facility] Last Admin: 07/30/17 09:22 Dose: 81 mg Carvedilol (Coreg) 6.25 mg PO BID-WM [facility] Dextrose/Water (Dextrose 50%) 25 gm IVP PRN PRN PRN Reason: HYPOGLYCEMIA PROTOCOL Enoxaparin Sodium (Lovenox) 40 mg SC QPM [facility] Last Admin: 07/29/17 22:54 Dose: 40 mg Glucagon (Glucagon) 1 mg IM PRN PRN PRN Reason: HYPOGLYCEMIA PROTOCOL Guaifenesin/Dextromethorphan (Robitussin Dm) 15 ml PO Q4H PRN PRN Reason: Cough Last Admin: 07/29/17 22:48 Dose: 15 ml Hydralazine HCl (Apresoline) 50 mg PO BID [facility] Last Admin: 07/30/17 09:23 Dose: 50 mg Dextrose/Water (D5w) 1,000 mls @ 0 mls/hr IV INF PRN; As Directed PRN Reason: HYPOGLYCEMIA PROTOCOL Sodium Chloride (Normal Saline 0.9%) 1,000 mls @ 50 mls/hr IV .Q20H [facility] Insulin Human Isoph/Insulin Regular (Humulin 70/30) 50 units SC BID-[facility] Last Admin: 07/30/17 08:30 Dose: Not Given Insulin Human Lispro (Humalog) 0 units SC .MILD SLIDING SCALE PRN; Protocol PRN Reason: MILD SLIDING SCALE Last Admin: 07/27/17 13:19 Dose: 4 unit Insulin Human Lispro (Humalog) 0 units SC .BEDTIME SLIDING SC PRN; Protocol PRN Reason: BEDTIME SLIDING SCALE Last Admin: 07/27/17 22:35 Dose: 2 unit Isosorbide Dinitrate (Isordil) 30 mg PO BID [facility] Last Admin: 07/30/17 09:23 Dose: 30 mg Levofloxacin (Levaquin) 750 mg PO Q2D@0600 [facility] Last Admin: 07/29/17 06:05 Dose: 750 mg Oseltamivir Phosphate (Tamiflu) 30 mg PO BID [facility] Stop: 07/30/17 21:01 Last Admin: 07/30/17 09:23 Dose: 30 mg Sodium Chloride (Flush - Normal Saline) 10 ml IVF Q12HR [facility] Last Admin: 07/30/17 09:24 Dose: 10 ml Sodium Chloride (Flush - Normal Saline) 10 ml IVF PRN PRN PRN Reason: Saline Flush Last Admin: 07/26/17 14:27 Dose: 10 ml
[2017-07-30] MEDS: Sodium Chloride 0.9% 1,000 ML IV SCH (12:15)
[2017-07-30] MEDS: Carvedilol 6.25 MG TAB PO SCH (18:00)
--- NOTE | 2017-07-30 18:48 | PRG ---
DATE OF SERVICE: 07/30/2017 SUBJECTIVE: Patient was seen and examined at bedside. The patient is not very responsive today, act rosalee miner was called after I saw her. OBJECTIVE: GENERAL: This is an elderly female, not responding very well. VITAL SIGNS: Temperature 97.7, pulse 68, respiratory rate 16, blood pressure 167/75. HEENT: Atraumatic, normocephalic. Oral mucosa is moist. NECK: Supple. CARDIOVASCULAR: S1, S2 heard. Rate and rhythm regular. RESPIRATORY: Clear to auscultation. GASTROINTESTINAL: Abdomen is soft. MUSCULOSKELETAL: No tenderness. No edema. DERMATOLOGIC: No skin rash. NEUROLOGIC: Alert and awake and oriented x3. No focal neurologic deficits. Moving all the extremiti es. PSYCHIATRIC: Mood and affect normal. LABORATORY DATA: Potassium 4.9, BUN 73, creatinine is 2.3 from 2.5. ASSESSMENT AND PLAN: 1. Acute kidney injury. Renal function is better after holding diuretics. Cautious hydration if to lerated. 2. Cardiorenal syndrome. 3. Edema, controlled. 4. Hypertension. Plan is to hold diuretics if tolerated and avoid nephrotoxins and we will follow.
[2017-07-30] MEDS: Enoxaparin Sodium 40 MG/0.4 ML SYRINGE SC SCH (21:40)
--- NOTE | 2017-07-31 00:47 | CON ---
DATE OF CONSULTATION: 07/30/2017 CONSULTING PHYSICIAN: Hospitalist Service. IMPRESSION: Probable orthostatic syncopal-seizure episode. PLAN: Check orthostatic blood pressures. Ms. Guzman is a 57-year-old woman with several ongoing medical problems including CHF and diabetes. She also has a pacemaker in place. She has a known ejection fraction of around 25-30%. She apparent ly was helped to a standing position by the nurses. There was some type of seizure-like episode that occurred. Patient has never had a seizure in the past. She does not really recall any of the detai ls. She had a CT of the brain done which was unremarkable. Her lab study notable for a CO2 of 59, O 2 of 77, BUN 73 and creatinine of 2.134. Patient does not have any focal complaints. PAST MEDICAL HISTORY: Diabetes, CHF, obesity. PAST SURGICAL HISTORY: Pacemaker implantation. FAMILY HISTORY: Noncontributory. SOCIAL HISTORY: No illicit drug use. ALLERGIES: PENICILLIN. MEDICATIONS: List was reviewed. REVIEW OF SYSTEMS: Otherwise, negative for headache, nausea, vomiting, vertigo or chest pain. PHYSICAL EXAMINATION: GENERAL: She is an obese middle-aged woman lying in bed in no distress. HEENT: Pupils equal and reactive. Conjunctivae clear. Oropharynx clear. NECK: Supple. EXTREMITIES: No cyanosis. NEUROLOGIC: She is a bit tired, but followed commands appropriately. Her speech was fluent and marcelo r. Cranial nerves were intact. Motor exam showed symmetric strength. Tone was normal bilaterally. No abnormal movements were seen. Gait was not tested. Sensory was intact to light touch bilaterall y. SUMMARY: I suspect that she had an orthostatic hypotensive event as a likely etiology for her sympto ms. I would rule this out before considering a primary neurologic event.
[2017-07-31 06:44] LABS: Anion Gap 17 mmol/L (10-20); BUN (Urea Nitrogen) 71 mg/dL (9.8-20.1); Calc. Creatinine Clearance 58 mL/min (70-130); Calcium 9.7 mg/dL (7.8-10.44); Carbon Dioxide 25 mmol/L (22-29); Chloride 100 mmol/L (98-107); Estimated GFR-MDRD 29; Glucose 180 mg/dL (70-105); Potassium 4.5 mmol/L (3.5-5.1); Sodium 137 mmol/L (136-145)
[2017-07-31] MEDS: Carvedilol 6.25 MG TAB PO SCH ×2 (08:36→17:17)
[2017-07-31] MEDS: Insulin NPH/Reg Insulin Hm 300 UNITS/3 ML VIAL SC SCH ×2 (08:36→17:28)
[2017-07-31] MEDS: Isosorbide Dinitrate 20 MG TAB PO SCH ×2 (08:37→21:32)
[2017-07-31] MEDS: Sodium Chloride 0.9% 1,000 ML IV SCH (08:37)
[2017-07-31] MEDS: hydrALAZINE 25 MG TAB PO SCH ×2 (08:37→21:32)
[2017-07-31] MEDS: Aspirin 81 mg Enteric Coated Tablet PO SCH (08:37)
--- NOTE | 2017-07-31 11:39 | PDOC.PN ---
- Subjective Encounter Start Date: 07/31/17 Encounter Start Time: 09:50 Subjective: responds well to first 2 questions then gives a blank stare -: no chest pain or sob -: not getting up much from bed, was watching tv before I came in - Objective Resuscitation Status: Resuscitation Status FULL:Full Resuscitation MAR Reviewed: Yes Vital Signs & Weight: Vital Signs (12 hours) Temp Pulse Resp BP Pulse Ox 07/31/17 08:31 87 16 07/31/17 08:30 87 L 07/31/17 08:20 98.4 F 84 28 H 147/65 H 98 07/31/17 03:05 61 18 93 L 07/31/17 00:28 71 20 89 L Weight Weight 270 lb 14.4 oz I&O: 07/30/17 07/31/17 08/01/17 06:59 06:59 06:59 Intake Total 1140 720 Output Total 600 350 Balance 540 370 Result Diagrams: 07/30/17 10:10 07/31/17 05:49 Additional Labs: Accuchecks 07/31/17 07/30/17 07/30/17 05:40 20:03 17:36 POC Glucose 168 H 160 H 180 H 07/30/17 07/30/17 11:54 10:48 POC Glucose 202 H 176 H Phys Exam - Physical Examination HEENT: PERRLA, sclera anicteric Neck: no JVD, supple Respiratory: no wheezing, no rales Cardiovascular: RRR, no significant murmur Gastrointestinal: soft, positive bowel sounds distention+, no rigidity or guarding Musculoskeletal: pulses present, edema present Neurological: non-focal, moves all 4 limbs Dx/Plan (1) OPAL (acute kidney injury) Code(s): N17.9 - ACUTE KIDNEY FAILURE, UNSPECIFIED Status: Acute Comment: resolving (2) Influenza Code(s): J11.1 - FLU DUE TO UNIDENTIFIED INFLUENZA VIRUS W OTH RESP MANIFEST Status: Resolved Comment: finished course of Tamiflu (3) Pneumonia Code(s): J18.9 - PNEUMONIA, UNSPECIFIED ORGANISM Status: Acute Comment: on Levaquin (4) Acute exacerbation of CHF (congestive heart failure) Code(s): I50.9 - HEART FAILURE, UNSPECIFIED Status: Chronic Qualifiers: Congestive heart failure type: systolic Qualified Code(s): I50.23 - Acute on chronic systolic (congestive) heart failure Comment: ef of around 25% (5) CKD (chronic kidney disease) stage 3, GFR 30-59 ml/min Status: Chronic (6) DM type 2 (diabetes mellitus, type 2) Status: Chronic Qualifiers: Diabetes mellitus complication detail: with chronic kidney disease Diabetes mellitus terminal supervisor insulin use: without terminal supervisor use Chronic kidney disease stage: stage 3 (moderate) (7) Morbid obesity Code(s): E66.01 - MORBID (SEVERE) OBESITY DUE TO EXCESS CALORIES Status: Chronic (8) Encephalopathy Code(s): G93.40 - ENCEPHALOPATHY, UNSPECIFIED Status: Acute - Plan change levaquin to 250mg daily -: renal function holding up -: still has encephalopathy, will r/o organic issues first -: will get CT chest/abd and pelvis, unclear if any etiology for above, not mu -: -ch history or symptoms from patient * . Review of Systems - Medications/Allergies Allergies/Adverse Reactions: Allergies Allergy/AdvReac Type Severity Reaction Status Date / Time penicillin V Allergy Verified 07/25/17 22:19 Medications: Current Medications Acetaminophen (Tylenol) 650 mg PO Q4H PRN PRN Reason: Headache/Fever or Pain Albuterol/Ipratropium (Duoneb) 3 ml NEB [id number] [facility] Last Admin: 07/31/17 08:31 Dose: 3 ml Aspirin (Ecotrin) 81 mg PO DAILY [facility] Last Admin: 07/31/17 08:37 Dose: 81 mg Carvedilol (Coreg) 6.25 mg PO BID-WM [facility] Last Admin: 07/31/17 08:36 Dose: 6.25 mg Dextrose/Water (Dextrose 50%) 25 gm IVP PRN PRN PRN Reason: HYPOGLYCEMIA PROTOCOL Enoxaparin Sodium (Lovenox) 40 mg SC QPM [facility] Last Admin: 07/30/17 21:40 Dose: 40 mg Glucagon (Glucagon) 1 mg IM PRN PRN PRN Reason: HYPOGLYCEMIA PROTOCOL Guaifenesin/Dextromethorphan (Robitussin Dm) 15 ml PO Q4H PRN PRN Reason: Cough Last Admin: 07/29/17 22:48 Dose: 15 ml Hydralazine HCl (Apresoline) 50 mg PO BID [facility] Last Admin: 07/31/17 08:37 Dose: 50 mg Dextrose/Water (D5w) 1,000 mls @ 0 mls/hr IV INF PRN; As Directed PRN Reason: HYPOGLYCEMIA PROTOCOL Sodium Chloride (Normal Saline 0.9%) 1,000 mls @ 50 mls/hr IV .Q20H [facility] Last Admin: 07/31/17 08:37 Dose: Not Given Insulin Human Isoph/Insulin Regular (Humulin 70/30) 50 units SC BID[facility] Last Admin: 07/31/17 08:36 Dose: Not Given Insulin Human Lispro (Humalog) 0 units SC .MILD SLIDING SCALE PRN; Protocol PRN Reason: MILD SLIDING SCALE Last Admin: 07/27/17 13:19 Dose: 4 unit Insulin Human Lispro (Humalog) 0 units SC .BEDTIME SLIDING SC PRN; Protocol PRN Reason: BEDTIME SLIDING SCALE Last Admin: 07/27/17 22:35 Dose: 2 unit Isosorbide Dinitrate (Isordil) 30 mg PO BID [facility] Last Admin: 07/31/17 08:37 Dose: 30 mg Levofloxacin (Levaquin) 750 mg PO Q2D@0600 [facility] Last Admin: 07/31/17 05:58 Dose: 750 mg Sodium Chloride (Flush - Normal Saline) 10 ml IVF Q12HR [facility] Last Admin: 07/31/17 08:38 Dose: 10 ml Sodium Chloride (Flush - Normal Saline) 10 ml IVF PRN PRN PRN Reason: Saline Flush Last Admin: 07/26/17 14:27 Dose: 10 ml
[2017-07-31] MEDS ORDERED: cefTRIAXone\\ROCEPHIN 1 GM in Sodium Chloride 0.9% 100 ML IVPB SCH (12:00)
[2017-07-31] MEDS: cefTRIAXone\\ROCEPHIN 1 GM, Syringe 0.4 ML in Sterile Water 9.6 ML SLOW IVP SCH ×2 (13:31→16:05)
--- NOTE | 2017-07-31 15:27 | CT ---
CT CHEST WITHOUT CONTRAST: CT ABDOMEN WITHOUT CONTRAST: CT PELVIS WITHOUT CONTRAST: HISTORY: Altered mental status. Abdominal distention. Shortness of breath. COMPARISON: CTA chest from 2014. FINDINGS: The exam is extremely limited due to the patient's arms being down, causing some photon starvation in the lower chest and upper abdomen. Atelectatic changes are present in the lung bases. The heart si ze is enlarged. In the right upper lobe, there are some air space opacities. No significant pericar dial effusion. The thyroid is visualized and is unremarkable. The liver is markedly enlarged. Trace perihepatic as cites. Numerous calcified fibroids. Small, fat-containing umbilical hernia with some edema within the fat. There are dilated right-great qs-coiw-egwc gonadal veins. No evidence for bowel obstruction. The appendix is visualized and appea rs normal. No free intraperitoneal gas is present. Nonspecific inguinal lymph nodes are present. The aortoiliac contour is nonaneurysmal. Mild third spacing and anasarca. There is a somewhat lobular contour of the superior pole left kidne y. The pancreas is unremarkable. The gallbladder is unremarkable. No hydroureteronephrosis or nephroureterolithiasis. No secondary e vidence of a recently passed stone. Mild degenerative changes of the hips. 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 No compression fracture is appreciated. No displaced rib fracture. IMPRESSION: 1. Faint right upper lobe air space opacity may reflect infectious, aspiration, or maybe even atelec tasis. 2. Marked cardiomegaly. 3. Hepatomegaly. 4. Mild third spacing and anasarca. 5. Markedly enlarged fibroid uterus. 6. Dilated gonadal veins suggest pelvic congestion syndrome. 7. Small fat-containing umbilical hernia with some mild edema within the fat, which may be sequela o f vascular congestion, less likely ischemic change. Recommend correlation for focal tenderness over the umbilicus. 8. Skin thickening of the anterior abdominal wall, which may be sequela of vascular congestion. 9. There is also skin thickening throughout the visualized abdomen and pelvis. 10. Lumbosacral transitional vertebra. POS: [facility]
[2017-07-31] MEDS: Enoxaparin Sodium 40 MG/0.4 ML SYRINGE SC SCH (21:29)
--- NOTE | 2017-08-01 00:11 | PRG ---
DATE OF SERVICE: 07/31/2017 SUBJECTIVE: The patient was slightly confused. OBJECTIVE: GENERAL: Obese female, slightly confused. VITAL SIGNS: Temperature 98.9, pulse 84, respiratory rate 16, blood pressure 140/60. HEENT: Atraumatic, normocephalic. Oral mucosa is moist NECK: Supple. CARDIOVASCULAR: S1 and S2 heard. Rate and rhythm regular. RESPIRATORY: Clear to auscultation. GASTROINTESTINAL: Abdomen is soft. MUSCULOSKELETAL: No tenderness. No edema. DERMATOLOGIC: No skin rash. NEUROLOGIC: Alert and awake and oriented X3, No focal neurologic deficits. Moving all the extremitie s. PSYCHIATRIC: Mood and affect normal. LABORATORY DATA: Creatinine is 2.1, potassium is 4.5. ASSESSMENT AND PLAN: 1. Acute kidney injury on chronic kidney disease. Renal function is stable, holding diuretics and n ephrotoxins. 2. Edema, controlled. 3. Hypertension. 4. Morbid obesity. Plan is to continue on dialysis. Continue to monitor renal function off nephrotoxins.
[2017-08-01] MEDS: Sodium Chloride 0.9% 1,000 ML IV SCH (06:49)
[2017-08-01] MEDS: hydrALAZINE 25 MG TAB PO SCH ×3 (09:43→22:13)
[2017-08-01] MEDS: Azithromycin 250 MG TAB PO SCH ×2 (09:44→11:15)
[2017-08-01] MEDS: Aspirin 81 mg Enteric Coated Tablet PO SCH ×2 (09:44→11:15)
[2017-08-01] MEDS: Isosorbide Dinitrate 20 MG TAB PO SCH ×3 (09:44→22:13)
[2017-08-01] MEDS: Carvedilol 6.25 MG TAB PO SCH ×3 (09:45→18:18)
[2017-08-01] MEDS: Insulin NPH/Reg Insulin Hm 300 UNITS/3 ML VIAL SC SCH ×2 (09:47→18:16)
[2017-08-01 10:28] LABS: #Basophils 0.1 thou/uL (0.0-0.2); #Lymphocytes 1.8 thou/uL (1.20-3.40); #Monocytes 0.7 thou/uL (0.11-0.59); #Neutrophils 5.1 thou/uL (1.40-6.50); %Basophils 0.9 % (0.0-1.0); %Eosinophils 0.1 % (0.0-10.0); %Monocytes 9.5 % (0.0-10.0); %Neutrophils 66.4 % (42.0-75.0); Hemoglobin 11.7 g/dL (12.0-16.0); Mean Corpuscular HGB CONC 31.9 g/dL (32.0-36.0); Mean Corpuscular Hemoglobin 31.8 pg (27.0-31.0); Mean Corpuscular Volume 99.7 fl (81.0-99.0); Platelet Count 137 thou/uL (130-400); RBC Distribution Width 14.1 % (11.5-14.5); Red Blood Cell (RBC) Count 3.69 mill/uL (4.20-5.40); White Blood Cell (WBC) Count 7.6 thou/uL (4.8-10.8)
[2017-08-01 10:36] LABS: INR-International Normal Ratio 1.2; PTT 25.5 SEC (22.9-36.1)
[2017-08-01 10:48] LABS: CKMB 2.5 ng/mL (0-6.6); Troponin I 0.064 ng/mL (< 0.028)
--- NOTE | 2017-08-01 11:04 | CT ---
CT OF HEAD WITHOUT CONTRAST: CLINICAL HISTORY: Stroke, altered mental status. COMPARISON: Reference is made to 07/29/17 exam. FINDINGS: There is a subtle, intervally developed subcortical hypodensity of the left frontal lobe. No intracr anial hemorrhage, mass effect, midline shift, or ventriculomegaly. Paranasal sinuses reveal minimal mucosal thickening. IMPRESSION: Interval development of a subtle area of subcortical hypoattenuation of the left frontal lobe indicat ing recent white matter infarction. Results were called to the patient's ordering physician, Dr. Rogelio Moreira, at 1037 hours . CODE CR POS: [facility]
[2017-08-01 11:35] LABS: ALT (SGPT) 22 U/L (8-55); AST (SGOT) 22 U/L (5-34); Albumin 3.5 g/dL (3.5-5.0); Alkaline Phosphatase 135 U/L (40-150); Anion Gap 15 mmol/L (10-20); BUN (Urea Nitrogen) 55 mg/dL (9.8-20.1); Bilirubin, Total 0.6 mg/dL (0.2-1.2); Calc. Creatinine Clearance 67 mL/min (70-130); Calcium 9.7 mg/dL (7.8-10.44); Carbon Dioxide 28 mmol/L (22-29); Chloride 103 mmol/L (98-107); Estimated GFR-MDRD 35; Globulin 3.6 g/dL (2.4-3.5); Glucose 224 mg/dL (70-105); Potassium 4.3 mmol/L (3.5-5.1); Protein, Total 7.1 g/dL (6.0-8.3); Sodium 142 mmol/L (136-145)
--- NOTE | 2017-08-01 12:25 | PRG ---
DATE OF SERVICE: 08/01/2017 SUBJECTIVE: The patient is seen and examined at the bedside. The Code Ozzie was called on her since her mental status is changed and she is not as responsive as s he was before. OBJECTIVE: VITAL SIGNS: Blood pressure is 144/67, pulse is 59, temperature is 98.3, respiratory rate is 18. O2 saturation is 99% on 2 liters. NEUROLOGIC: Her neurologic examination is definitely changed. She is not very responsive. She trie s to follow simple commands, but she falls very short very quickly and she does not have any obvious focal deficits, but she is much less responsive and somewhat more comatose. HEENT: Her pupils are responding to light properly. Her oral mucosa is moist. LUNGS: Clear. HEART: S1, S2 normal. ABDOMEN: Obese, distended. Bowel sounds are present, no organomegaly. EXTREMITIES: No clubbing, cyanosis or edema. NEUROLOGIC: As mentioned above. LABORATORY DATA: Showed a white count of 7.6, hemoglobin 11.7, hematocrit 36.8, platelet count is 13 7. INR is 1.2, PT of 15.0. APTT 25.5. Electrolytes within normal limits. BUN 55, creatinine 1.81. Glycemia is ranging from 168 to 234. Troponin I 0.064, globulin 3.6 and the rest of chemistry is w ithin normal limits. IMPRESSION: 1. Altered mental status of unclear etiology. At this point she does not have any focal deficits, b ut we will get the CT of the brain without IV contrast for further evaluation of her problem. 2. Influenza status post completed course of Tamiflu. 3. Pneumonia, currently on oral antibiotics. 4. Acute exacerbation of congestive heart failure, left ventricular ejection fraction estimated at 2 2% on the last echocardiogram. 5. Chronic kidney disease stage 3. 6. Diabetes mellitus type 2, chronic. 7. Morbid obesity. PLAN: The plan is to do the CT of the head without IV contrast. Continue her current antibiotic victorina atment and further recommendations based findings on the CT.
[2017-08-01] MEDS ORDERED: Aspirin 300 MG Suppository PR SCH (12:30)
--- NOTE | 2017-08-01 15:54 | PRG ---
DATE OF SERVICE: 08/01/2017 The patient had a CT of the brain done which was read by radiologist as interval development of a sub tle area of subcortical hypoattenuation of the left frontal lobe indicating recent white matter infar ction. The patient is clinically doing better. She is more responsive to us. She is sitting uprigh t and is fed by family member. We will obtain consultation with Dr. Barnes, her carpet or rug layer helper, loraine spencer JUNAID. We will give aspirin 325 mg dose and all the efforts were made to contact Dr. Kinney who saw her for Neurology consultation a couple of days ago and discussed the case with him a nd made decision about further anticoagulation treatment for this lady. We are not able to obtain MR I on her since the is not compatible with the MRI.
[2017-08-01] MEDS: cefTRIAXone\\ROCEPHIN 1 GM, Syringe 0.4 ML in Sterile Water 9.6 ML SLOW IVP SCH ×4 (15:57)
[2017-08-01] MEDS: Enoxaparin Sodium 120 MG/0.8 ML SYRINGE SC SCH (18:34)
--- NOTE | 2017-08-01 22:40 | PRG ---
DATE OF SERVICE: 08/01/2017 SUBJECTIVE: The patient is not very communicative. OBJECTIVE: GENERAL: This is an elderly female in no apparent distress. VITAL SIGNS: Temperature 98.2, pulse 86, respiratory 20, blood pressure 186/90. HEENT: Atraumatic, normocephalic. Oral mucosa is moist. NECK: Supple. CARDIOVASCULAR: S1, S2 heard. Rate and rhythm regular. RESPIRATORY: Clear to auscultation. GASTROINTESTINAL: Abdomen is soft. MUSCULOSKELETAL: No tenderness. No edema. DERMATOLOGIC: No skin rash. NEUROLOGIC: Alert and awake and oriented x3. No focal neurologic deficits. Moving all the extremit ies. PSYCHIATRIC: Mood and affect normal. LABORATORY DATA: Potassium is 4.3, BUN is 55, creatinine is 1.8. ASSESSMENT AND PLAN: 1. Acute kidney injury secondary to cardiorenal syndrome. Creatinine is stable and getting better. 2. Altered mentation. 3. Edema. 4. Hypertension. 5. Morbid obesity. 6. Anemia. 7. Renal function is stable. We will follow.
[2017-08-02] MEDS: Sodium Chloride 0.9% 1,000 ML IV SCH (02:56)
[2017-08-02] MEDS: HumaLOG 300 UNITS/3 ML VIAL SC PRN ×2 (06:17→21:39)
[2017-08-02 08:57] LABS: Anion Gap 15 mmol/L (10-20); BUN (Urea Nitrogen) 38 mg/dL (9.8-20.1); Calc. Creatinine Clearance 75 mL/min (70-130); Calcium 10.3 mg/dL (7.8-10.44); Carbon Dioxide 27 mmol/L (22-29); Chloride 104 mmol/L (98-107); Estimated GFR-MDRD 42; Glucose 291 mg/dL (70-105); Potassium 4.3 mmol/L (3.5-5.1); Sodium 142 mmol/L (136-145)
[2017-08-02] MEDS ORDERED: Aspirin 300 MG Suppository PR SCH ×2 (09:00)
--- NOTE | 2017-08-02 09:14 | PRG ---
DATE OF SERVICE: 08/02/2017 SUBJECTIVE: This is a 57-year-old female being seen for acute kidney injury. The patient denies any nausea, vomiting or chest pain. PHYSICAL EXAMINATION: GENERAL: Patient is awake, alert. VITAL SIGNS: Afebrile, pulse 81, breathing at 16, blood pressure 126/68. HEAD/NECK: Normocephalic. Atraumatic. EYES: EOMI. No deformity. EARS: Clear. No ulcers. NOSE: Intact. No lesions. MOUTH: Clear. No discharge. THROAT: Clear. No exudate. LUNGS: Clear. No crackles. CARDIAC: S1, S2. No rub. ABDOMEN: Benign. BS+. GENITALIA/RECTUM: Mariscal absent. BACK/EXTREMITIES: Edema 0+ Ulcer- NEUROLOGICAL: Alert and motor intact. SKIN: Rash- Bruise- LYMPHATICS: Edema- Ulcer- LABORATORY DATA: Hemoglobin 11.7, creatinine 1.55. ASSESSMENT AND PLAN: 1. Acute kidney injury, improved. 2. Hypertension, stable. 3. Anemia, stable. 4. Medications based on glomerular filtration rate are appropriate. No indication for dialysis. Th e patient can follow up with Dr. Vargas in 1 week. I will sign off.
[2017-08-02] MEDS: Carvedilol 6.25 MG TAB PO SCH ×2 (10:28→16:48)
[2017-08-02] MEDS: Isosorbide Dinitrate 20 MG TAB PO SCH ×2 (10:29→21:38)
[2017-08-02] MEDS: hydrALAZINE 25 MG TAB PO SCH ×2 (10:30→21:38)
[2017-08-02] MEDS: Insulin NPH/Reg Insulin Hm 300 UNITS/3 ML VIAL SC SCH ×2 (10:31→16:49)
[2017-08-02] MEDS: Aspirin 81 mg Enteric Coated Tablet PO SCH (10:51)
[2017-08-02] MEDS: Azithromycin 250 MG TAB PO SCH (11:00)
[2017-08-02] MEDS: cefTRIAXone\\ROCEPHIN 1 GM, Syringe 0.4 ML in Sterile Water 9.6 ML SLOW IVP SCH (13:38)
--- NOTE | 2017-08-02 13:47 | PRG ---
DATE OF SERVICE: 08/02/2017 Ms. Guzman has been having some mental status changes with some difficulty following commands and not acting appropriately. She had a followup CT scan which was read as potentially showing some left fr ontal ischemia changes compared to her prior study on 07/29/2017. On examining the patient she was a lert and appropriate. She followed commands, did not elicit any evidence of expressive or receptive aphasia. She had no focal deficits. Given her poor EF of 25-30%, I would start her on anticoagulation. Given the unusual pattern of beha vior I would obtain an EEG to see if she is having some subclinical seizure activity. I do not see a ny evidence of acute changes on her exam compared to what was read by the radiologist.
--- NOTE | 2017-08-02 14:52 | ULT ---
CAROTID ULTRASOUND WITH HARMON SCALE AND DOPPLER DUPLEX COLOR FLOW IMAGING SPECTRAL ANALYSIS PERFORMED: CLINICAL INDICATION: CVA. FINDINGS: There is no hemodynamically significant atherosclerotic calcification of the carotid arteries. PEAK SYSTOLIC VELOCITY (CM/S): Right CCA 77 Left CCA 62 Right ICA 60 Left ICA 66 There is antegrade flow within the visualized bilateral vertebral arteries. IMPRESSION: 1. No hemodynamically significant stenosis of the right internal carotid artery. 2. No hemodynamically significant stenosis of the left internal carotid artery. 3. Incidental note of probable complex nodule in the thyroid gland, incompletely assessed. Recommen d dedicated followup with thyroid ultrasound. POS: [facility]
--- NOTE | 2017-08-02 16:15 | PRG ---
DATE OF SERVICE: 08/02/2017 SUBJECTIVE: The patient is seen and examined at the bedside. She is sitting on the edge of her bed and she is getting ready to eat. Her mental function is fluctuating. OBJECTIVE: HEENT: Her head is atraumatic and normocephalic. Eyes PERRLA. Conjunctivae pinkish. Oral mucosa i s moist. LUNGS: Clear. HEART: S1 and S2 normal. No S3, no S4, no any murmur. ABDOMEN: Soft, obese, nontender, nondistended. EXTREMITIES: No clubbing, cyanosis, or edema. NEUROLOGIC: She tries to follow my commands, but she looks like she does not comprehend all my quest ions and sometimes she repeats them trying to understand them. SKIN: No rash or erythema. LABORATORY DATA: Showed normal electrolytes, BUN of 38, creatinine 1.55. Glycemia is ranging from 1 98-297. Calcium is 10.3. Microbiology, none. Carotid Doppler, final report is pending, but my inte rpretation did not show any. IMPRESSION: 1. Altered mental status of uncertain etiology. Mental status fluctuates, gets better and gets wors e. The patient was seen by Dr. Kinney of Neurology while in the hospital and today and he recommend ed EEG, also anticoagulation since her LVEF is low in the range of 25%. 2. Left frontal lobe cerebrovascular accident based on the CT done yesterday. MRI cannot be done si nce her defibrillator is not compatible with MRI, so she is still treated with Lovenox and she is sta rted on Coumadin. 3. Influenza status post completed course of Tamiflu. 4. Pneumonia, currently on oral antibiotics. 5. Acute exacerbation of congestive heart failure, left ventricular ejection fraction estimated at 2 2% on the last echocardiogram. 6. Chronic kidney disease stage 3, improving. 7. Diabetes mellitus type 2. Apparently the patient was not getting her regular doses of long-actin g insulin 50 units twice a day because she was not eating properly and there was a concern that she m ight get hypoglycemic, so she will be restarted on her regular dosing 50 units twice a day. 8. Morbid obesity. PLAN: As mentioned above, she started on Lovenox one dose daily secondary to her renal insufficiency . Also, she is started on Coumadin [address] Kinney. PT and INR will be done daily. She will c ontinue on oral antibiotics. She has finished with her Tamiflu. Also her aspirin was decreased to 8 1 mg once a day. She will do physical therapy and we are awaiting for final report on her carotids b y radiologist.
[2017-08-02] MEDS: Enoxaparin Sodium 120 MG/0.8 ML SYRINGE SC SCH (16:49)
[2017-08-02] MEDS: Warfarin Sodium 10 MG TAB PO SCH (16:49)
--- NOTE | 2017-08-02 19:07 | CON ---
DATE OF CONSULTATION: 08/02/2017 HISTORY OF PRESENT ILLNESS: The patient is an unfortunate 57-year-old woman who has developed acute altered mental status. The patient has a history of a cardiomyopathy. She was seen in 12/2003 and found to have an ejection fraction of only 25%. She underwent a cardiac catheterization that revealed her to have a 30-40% LAD lesion, 50-60% left circumflex lesion and 3o% RCA lesion. The patient has subsequently been on medical therapy. The patient has not come for cardiac followup. The patient did have placement of automatic implantable cardiac defibrillator. She presented with dyspnea, fever and chills. During her hospitalization, the patient had a syncopal episode. This was felt to be secondary to orthostatic hypotension. Yesterday, the patient developed acute altered mental status. She underwent a CT scan showing evidence of an acute infarct. The patient is unable to give a coherent history. PAST MEDICAL HISTORY: 1. Cardiomyopathy. 2. Chronic renal insufficiency. 3. Hypertension. 4. Dyslipidemia. PAST SURGICAL HISTORY: AICD placement. ALLERGIES: PENICILLIN. MEDICATIONS: See nursing list. SOCIAL HISTORY: Unobtainable. FAMILY HISTORY: Unobtainable. REVIEW OF SYSTEMS: Unobtainable. PHYSICAL EXAMINATION: GENERAL: Obese woman who is disoriented with a blood pressure of 182/64. NECK: Full. LUNGS: Coarse breath sounds bilateral. HEART: Regular rate and rhythm, normal S1, S2, 1/6 systolic murmur. ABDOMEN: Distended. EXTREMITIES: Showed mild bilateral edema. LABORATORY: Sodium 142, potassium 4.3, chloride 104, bicarbonate 27, BUN 38, creatinine 1.55, glucose is 291. White blood cell count 7.6, hemoglobin 11.7, hematocrit 36.8, her platelets were 137. Her EKG revealed her to have normal sinus rhythm, prolonged QT interval, otherwise unremarkable. IMPRESSION: 1. Acute CVA. 2. Orthostatic hypotension. 3. History of 3-vessel coronary artery disease. 4. Cardiomyopathy. 5. History of automatic implantable cardioverter/defibrillator placement. 6. Diabetes mellitus. This patient has suffered acute CVA. She has been followed by Neurology. From a cardiac standpoint, we checked the patient's carotid ultrasound to see if there is evidence of cerebrovascular disease. She is on Lovenox and aspirin. I would recommend following the Neurology recommendations. As for a JUNAID if indicated by Neurology, I would be happy to perform this procedure, though I am not clear that at this time it would be of use. I would add lipid lowering medication. We will follow this patient with you through her hospitalization. BLACK
[2017-08-02] MEDS: Atorvastatin Calcium 40 MG TAB PO SCH (21:38)
[2017-08-03 06:34] LABS: INR-International Normal Ratio 1.3; Prothrombin Time 16.2 SEC (12.0-14.7)
[2017-08-03 06:39] LABS: Hemoglobin 12.4 g/dL (12.0-16.0); Platelet Count 179 thou/uL (130-400)
[2017-08-03] MEDS: Insulin NPH/Reg Insulin Hm 300 UNITS/3 ML VIAL SC SCH ×2 (08:46→17:30)
[2017-08-03] MEDS: Azithromycin 250 MG TAB PO SCH (10:19)
[2017-08-03] MEDS: Carvedilol 6.25 MG TAB PO SCH ×2 (10:19→16:13)
[2017-08-03] MEDS: Losartan Potassium 25 MG TAB PO SCH (10:19)
[2017-08-03] MEDS: Aspirin 81 mg Enteric Coated Tablet PO SCH (10:20)
[2017-08-03] MEDS: hydrALAZINE 25 MG TAB PO SCH ×2 (10:20→20:54)
[2017-08-03] MEDS: Isosorbide Dinitrate 20 MG TAB PO SCH ×2 (10:20→20:54)
[2017-08-03] MEDS: cefTRIAXone\\ROCEPHIN 1 GM, Syringe 0.4 ML in Sterile Water 9.6 ML SLOW IVP SCH (11:23)
--- NOTE | 2017-08-03 12:33 | PRG ---
DATE OF SERVICE: 08/03/2017 SUBJECTIVE: A 57-year-old female being seen for acute kidney disease. The patient denied any nausea , vomiting or chest pain. OBJECTIVE: GENERAL: The patient is awake and alert. VITAL SIGNS: Afebrile, pulse 64, breathing at 16 and blood pressure 108/51. HEAD/NECK: Normocephalic. Atraumatic. EYES: EOMI. No deformity. EARS: Clear. No ulcers. NOSE: Intact. No lesions. MOUTH: Clear. No discharge. THROAT: Clear. No exudate. LUNGS: Clear. No crackles. CARDIAC: S1, S2. No rub. ABDOMEN: Benign. BS+. GENITALIA/RECTUM: Mariscal absent. BACK/EXTREMITIES: Edema 0+. Ulcer-. NEUROLOGICAL: Alert and motor intact. SKIN: Rash-. Bruise-. LYMPHATICS: Edema-. Ulcer-. LABORATORY DATA: Showed a hemoglobin of 12.4. Creatinine 1.3. ASSESSMENT AND PLAN: Acute kidney injury, stable. Hypertension, stable. Anemia, stable. I will si gn off on this patient. Please reconsult as needed.
[2017-08-03] MEDS: HumaLOG 300 UNITS/3 ML VIAL SC PRN (13:09)
--- NOTE | 2017-08-03 13:35 | PRG ---
DATE OF SERVICE: 08/03/2017 SUBJECTIVE: The patient is seen and examined at the bedside. She seems to be more awake and alert t his morning, although she does not know the date, month and the year correctly, but she knows that francis huerta is at [facility]. She is eating without any issues. OBJECTIVE: VITAL SIGNS: Blood pressure is 163/89, pulse is 82, respiratory rate is 20, O2 saturation is 94% on 2 liters and temperature is 97.9. HEENT: Head is atraumatic and normocephalic. Eyes are PERRLA. Sclerae nonicteric. Oral mucosa is moist. NECK: Supple. LUNGS: Clear. HEART: S1 and S2 normal. No S3, no S4. ABDOMEN: Obese, soft and somewhat distended. Bowel sounds are present. No organomegaly. EXTREMITIES: No clubbing, cyanosis or edema. NEUROLOGIC: As mentioned above, she is oriented to place, but not to time, date, month and year, but she is much more awake and she is able to converse with me and she tries to answer my questions. Francis huerta is able to move her all 4 extremities. There is no any focal deficit. LABORATORY DATA: Showed glycemia ranging from 87-340. INR of 1.3 and PT of 16.2. Hemoglobin 12.4, hematocrit 39.4 and platelet count is 179,000. IMAGING DATA: EEG is still pending and carotid Doppler showed no hemodynamically significant stenosi s of the right internal carotid artery and left internal carotid artery. There was an incidental fin ding of a complex nodule in the thyroid gland, but it was incompletely assessed with the current test ing and a thyroid ultrasound was recommended by the radiologist. Microbiology, no new testing. IMPRESSION 1. Left frontal lobe CVA based on the CT done 2 days ago. MRI could not be done secondary to her de fibrillator, incompatibility with MRI. The patient was started on Lovenox and on Coumadin. We will continue both. 2. Influenza, status post, completed a course of Tamiflu. 3. Pneumonia, currently on oral antibiotics. 4. Altered mental status of uncertain etiology. Neurology ordered EEG to rule out non-convulsive se izures as a cause of her mental status changes and fluctuation. 5. Cardiomyopathy with left ventricular ejection fraction of 25%. 6. Chronic kidney disease stage 3, improved. 7. Diabetes mellitus type 2. The patient started getting her regular dose of insulin and hypoglycem ia is significantly better now. 8. Morbid obesity. 9. Thyroid nodule. I am going to order a designated thyroid ultrasound to find out more about this complex nodule. PLAN: Continue her Coumadin and Lovenox until she reaches therapeutic level, PT and INR daily. So f ar, the INR is very low. She finished her Tamiflu. She continues on her oral antibiotics. She will continue her aspirin 81 mg. We will have EEG done as per Dr. Kinney's ordered and will obtain thyr oid ultrasound. She will continue her physical therapy and occupational therapy and it depends how s he progresses. She might need just physical therapy and occupational therapy through home healthcare agency at the time of discharge.
[2017-08-03] MEDS: Warfarin Sodium 10 MG TAB PO SCH (16:13)
[2017-08-03] MEDS: Enoxaparin Sodium 120 MG/0.8 ML SYRINGE SC SCH (16:13)
--- NOTE | 2017-08-03 16:44 | ULT ---
THYROID ULTRASOUND: 08/03/17 HISTORY: Multinodular thyroid. COMPARISON: None. FINDINGS: Isthmus measures 1 cm in AP dimension. The right lobe measures 5.2 x 2.6 x 1.9 cm. Left lobe measures 4.4 x 2 x 1.9 cm. Numerous colloid nodules are present throughout the thyroid. No suspicious mass. No nodule requiring aspiration per TI-RADS criteria. IMPRESSION: Numerous simple colloid nodules throughout the thyroid. POS: ARNALDO
[2017-08-03] MEDS: Atorvastatin Calcium 40 MG TAB PO SCH (20:55)
[2017-08-04] MEDS: HumaLOG 300 UNITS/3 ML VIAL SC PRN (06:25)
[2017-08-04 07:49] LABS: Prothrombin Time 23.1 SEC (12.0-14.7)
[2017-08-04] MEDS: Carvedilol 6.25 MG TAB PO SCH ×2 (08:18→17:14)
[2017-08-04] MEDS: Insulin NPH/Reg Insulin Hm 300 UNITS/3 ML VIAL SC SCH ×2 (08:19→17:14)
[2017-08-04] MEDS: hydrALAZINE 25 MG TAB PO SCH ×2 (08:20→20:44)
[2017-08-04] MEDS: Aspirin 81 mg Enteric Coated Tablet PO SCH (08:20)
[2017-08-04] MEDS: Azithromycin 250 MG TAB PO SCH (08:20)
[2017-08-04] MEDS: Losartan Potassium 25 MG TAB PO SCH (08:21)
[2017-08-04] MEDS: Isosorbide Dinitrate 20 MG TAB PO SCH ×2 (08:21→20:42)
--- NOTE | 2017-08-04 13:45 | PDOC.PN ---
- Subjective Encounter Start Date: 08/04/17 Encounter Start Time: 07:00 Pt seen for followup re: acute CVA. Denies chest pain or shortness of breath. Denies weakness. - Objective Resuscitation Status: Resuscitation Status FULL:Full Resuscitation MAR Reviewed: Yes Vital Signs & Weight: Vital Signs (12 hours) Temp Pulse Pulse Pulse Resp BP BP 08/04/17 11:26 97.8 F 60 20 08/04/17 10:30 62 66 140/76 08/04/17 10:04 08/04/17 10:03 59 L 20 08/04/17 08:20 63 144/85 H 08/04/17 08:18 144/85 H 08/04/17 08:00 98.4 F 63 16 08/04/17 03:25 97.4 F L 66 18 BP BP BP Pulse Ox 08/04/17 11:26 127/55 L 97 08/04/17 10:30 127/55 L 08/04/17 10:04 99 08/04/17 10:03 99 08/04/17 08:20 08/04/17 08:18 08/04/17 08:00 144/85 H 98 08/04/17 03:25 166/78 H 95 Weight Admit Weight 268 lb Weight 260 lb 8 oz I&O: 08/03/17 08/04/17 08/05/17 06:59 06:59 06:59 Intake Total 1550 1880 Balance 1550 1880 Result Diagrams: 08/03/17 06:12 08/03/17 06:12 Additional Labs: Accuchecks 08/04/17 08/04/17 08/03/17 11:01 05:56 21:44 POC Glucose 157 H 217 H 77 08/03/17 16:55 POC Glucose 121 H EKG Reviewed by me: Yes (Tele: NSR) Phys Exam - Physical Examination Morbid obesity HEENT: moist MMs Neck: supple Respiratory: clear to auscultation bilateral Cardiovascular: RRR Gastrointestinal: soft Neurological: moves all 4 limbs Psychiatric: normal affect Deviation from normal: Oriented to person and place, not to time Dx/Plan (1) Acute CVA (cerebrovascular accident) Code(s): I63.9 - CEREBRAL INFARCTION, UNSPECIFIED Status: Acute (2) Cardiomyopathy Code(s): I42.9 - CARDIOMYOPATHY, UNSPECIFIED Status: Chronic (3) CAD (coronary artery disease) Code(s): I25.10 - ATHSCL HEART DISEASE OF [place] CORONARY ARTERY W/O ANG PCTRS Status: Chronic (4) CKD (chronic kidney disease) stage 3, GFR 30-59 ml/min Status: Chronic (5) DM type 2 (diabetes mellitus, type 2) Status: Chronic Qualifiers: Diabetes mellitus complication detail: with chronic kidney disease Diabetes mellitus fci insulin use: without termite treater use Chronic kidney disease stage: stage 3 (moderate) (6) Morbid obesity Code(s): E66.01 - MORBID (SEVERE) OBESITY DUE TO EXCESS CALORIES Status: Chronic - Plan PT/OT, out of bed/ambulate * . CKD stable. Continue aszpirin and statin. INR therapeutic, discontinue enoxaparin. Continue accuchecks, insulin sliding scale. Review of Systems - Review of Systems Respiratory: negative: Cough, Dry, Shortness of Breath, Hemoptysis, SOB with Excertion, Pleuritic Pain, Sputum, Wheezing Cardiovascular: negative: chest pain, palpitations, orthopnea, paroxysmal nocturnal dyspnea, edema, light headedness Neurological: negative: Weakness, Numbness, Incoordination, Change in Speech, Confusion, Seizures - Medications/Allergies Allergies/Adverse Reactions: Allergies Allergy/AdvReac Type Severity Reaction Status Date / Time penicillin V Allergy Verified 07/25/17 22:19 Medications: Current Medications Acetaminophen (Tylenol) 650 mg PO Q4H PRN PRN Reason: Headache/Fever or Pain Albuterol/Ipratropium (Duoneb) 3 ml NEB [id number] [facility] Last Admin: 08/04/17 10:03 Dose: 3 ml Aspirin (Ecotrin) 81 mg PO DAILY [facility] Last Admin: 08/04/17 08:20 Dose: 81 mg Atorvastatin Calcium (Lipitor) 80 mg PO HS [facility] Last Admin: 08/03/17 20:55 Dose: 80 mg Carvedilol (Coreg) 6.25 mg PO BID-WM [facility] Last Admin: 08/04/17 08:18 Dose: 6.25 mg Dextrose/Water (Dextrose 50%) 25 gm IVP PRN PRN PRN Reason: HYPOGLYCEMIA PROTOCOL Enoxaparin Sodium (Lovenox) 120 mg SC 1600 [facility] Last Admin: 08/03/17 16:13 Dose: 120 mg Glucagon (Glucagon) 1 mg IM PRN PRN PRN Reason: HYPOGLYCEMIA PROTOCOL Guaifenesin/Dextromethorphan (Robitussin Dm) 15 ml PO Q4H PRN PRN Reason: Cough Last Admin: 07/29/17 22:48 Dose: 15 ml Hydralazine HCl (Apresoline) 50 mg PO BID [facility] Last Admin: 08/04/17 08:20 Dose: 50 mg Dextrose/Water (D5w) 1,000 mls @ 0 mls/hr IV INF PRN; As Directed PRN Reason: HYPOGLYCEMIA PROTOCOL Insulin Human Isoph/Insulin Regular (Humulin 70/30) 50 units SC BID-[facility] Last Admin: 08/04/17 08:19 Dose: 50 unit Insulin Human Lispro (Humalog) 0 units SC .MILD SLIDING SCALE PRN; Protocol PRN Reason: MILD SLIDING SCALE Last Admin: 08/04/17 06:25 Dose: 3 unit Insulin Human Lispro (Humalog) 0 units SC .BEDTIME SLIDING SC PRN; Protocol PRN Reason: BEDTIME SLIDING SCALE Last Admin: 08/02/17 21:39 Dose: 4 unit Isosorbide Dinitrate (Isordil) 30 mg PO BID [facility] Last Admin: 08/04/17 08:21 Dose: 30 mg Losartan Potassium (Cozaar) 25 mg PO DAILY [facility] Last Admin: 08/04/17 08:21 Dose: 25 mg Sodium Chloride (Flush - Normal Saline) 10 ml IVF Q12HR [facility] Last Admin: 08/04/17 08:28 Dose: Not Given Sodium Chloride (Flush - Normal Saline) 10 ml IVF PRN PRN PRN Reason: Saline Flush Last Admin: 07/26/17 14:27 Dose: 10 ml Warfarin Sodium (Coumadin) 10 mg PO 1700 [facility] Last Admin: 08/03/17 16:13 Dose: 10 mg
[2017-08-04] MEDS: Warfarin Sodium 10 MG TAB PO SCH (17:17)
[2017-08-04] MEDS: Atorvastatin Calcium 40 MG TAB PO SCH (20:43)
[2017-08-05 05:35] LABS: Hemoglobin 12.2 g/dL (12.0-16.0); Platelet Count 184 thou/uL (130-400)
[2017-08-05 05:47] LABS: INR-International Normal Ratio 2.5; Prothrombin Time 28.1 SEC (12.0-14.7)
[2017-08-05] MEDS: Losartan Potassium 25 MG TAB PO SCH (08:34)
[2017-08-05] MEDS: Insulin NPH/Reg Insulin Hm 300 UNITS/3 ML VIAL SC SCH ×2 (08:34→17:03)
[2017-08-05] MEDS: Isosorbide Dinitrate 20 MG TAB PO SCH (08:35)
[2017-08-05] MEDS: hydrALAZINE 25 MG TAB PO SCH (08:35)
[2017-08-05] MEDS: Aspirin 81 mg Enteric Coated Tablet PO SCH (08:36)
[2017-08-05] MEDS: Carvedilol 6.25 MG TAB PO SCH ×2 (08:36→17:02)
[2017-08-05 09:58] VITALS: BMI 41.4
--- NOTE | 2017-08-05 17:19 | DIS ---
DATE OF ADMISSION: 07/25/2017 DATE OF DISCHARGE: 08/05/2017 PRIMARY CARE PROVIDER: Evelyn Quick M.D. DISCHARGE DISPOSITION: Discharged to [facility]. FINAL DIAGNOSES: Cerebral infarction, cardiomyopathy, atherosclerotic coronary artery disease, diabe amairani mellitus type 2, chronic kidney disease stage 3. DISCHARGE MEDICATIONS: Aspirin 81 mg a day, Imdur 30 mg twice a day, NovoLog 70/30 50 units subcutan eous twice a day, Apresoline 50 mg twice a day, Cozaar 25 mg a day, Isordil 30 mg twice a day, DuoNeb 3 mL neb q.6 hours p.r.n., mild Humalog sliding scale, Coreg 6.25 mg twice a day, Lipitor 80 mg a da y. ALLERGIES: To PENICILLIN. PENDING AT THE TIME OF DISCHARGE: Nothing. HOSPITAL COURSE: The patient was admitted to the hospital by [facility] to the [facility]. She was admitted for shortness of breath with CHF and AICD. The patient had been off her diuretics. Chest x-ray here demonstrated mild bilateral pulmonary vascular congesti on, marked cardiomegaly and an AICD in the left lateral chest. Laboratory initial white count 7.2, all follow ups were normal. Hemoglobin 10.8, final was 12.2. Pl atelet count normal. Initial creatinine 1.65, BUN 26. Electrolytes were balanced. Her renal functi on continued in the chronic kidney disease stage 3-4 area during her hospital stay. Final creatinine was 1.55. During her hospital stay, she underwent IV diuresis with no significant weight loss durin g her hospital stay. She was seen 07/29/[address] Tammie Vargas. On 07/29/2017, she had a CAT s can of her brain, which revealed no acute intracranial abnormality. She has a consultation with Dr. Hernán Kinney, Neurology of 07/30/2017. On 08/01/2017, she had a followup brain CT, which revealed an interval subcortical hypoattenuation in the left frontal lobe indicating recent stroke. Carotid Dop plers indicated no stenosis of the internal coronary arteries. Thyroid ultrasound revealed numerous simple colloid nodules throughout the thyroid. was transiently treated with anticoagulation, w hich has been stopped. Patient is currently stable with no residual neurological deficit. Her vital signs are stable. Cardiorespiratory exam reveals a regular rate and rhythm. Clear chest. [facility] post[facility], OT, PT and speech therapy. She will be continued on the medicines as shown. Forty minutes were spent preparing this discharge.
[2017-08-05 21:07] VITALS: BP 149/70; TEMP 98.4
--- NOTE | 2017-08-07 08:44 | EEG ---
Referring Physician: Nazario MCNEILL EEG # [id number] TEST TYPE: ROUTINE PORTABLE INPATIENT REPORT: AN EEG USING THE INTERNATIONAL TEN-TWENTY SYSTEM OF ELECTRODE PLACEMENT WAS PERFORMED. The best waking background is a 7.5 hertz theta frequency. The patient appeared restless and did not sleep during the study. Photic stimulation was unremarkable. No epileptiform features were seen. IMPRESSION: THIS IS AN ABNORMAL STUDY FOR THE FINDINGS OF MILD SLOWING CONSISTENT WITH A DIFFUSE ENCEPHALOPATHIC PROCESS. Crime Scene Examiner: MORENA Telephone Lines Repairer: EEG.[employer]
--- NOTE | 2017-08-08 19:27 | EKG ---
Test Reason : CODE GREEN Blood Pressure : / mmHG Vent. Rate : 064 BPM Atrial Rate : 064 BPM P-R Int : 194 ms QRS Dur : 100 ms QT Int : 500 ms P-R-T Axes : 056 081 068 degrees QTc Int : 515 ms Sinus rhythm with sinus arrhythmia with occasional Premature ventricular complexes Prolonged QT Abnormal ECG When compared with ECG of 16-OCT-2016 16:42, Premature ventricular complexes are now Present Confirmed by VIPUL VERMA (2) on 08/08/2017 7:27:34 PM Referred By: KEHINDE Confirmed By:VIPUL VERMA
--- NOTE | 2017-08-08 19:36 | EKG ---
Test Reason : Blood Pressure : / mmHG Vent. Rate : 074 BPM Atrial Rate : 074 BPM P-R Int : 186 ms QRS Dur : 098 ms QT Int : 436 ms P-R-T Axes : 061 091 065 degrees QTc Int : 483 ms Normal sinus rhythm Rightward axis Prolonged QT Abnormal ECG When compared with ECG of 30-JUL-2017 10:50, (Unconfirmed) Premature ventricular complexes are no longer Present Confirmed by VIPUL VERMA (2) on 08/08/2017 7:36:28 PM Referred By: PATRICIA Confirmed By:VIPUL VERMA
== END 2017-08-05 21:15 | DRG 291 ==
LOC: 2NO 17:58 → 2SE 08-01 17:29
PROVIDERS: ADMIT Internal Medicine; ATTEND Internal Medicine
DX: I13.0 Hypertensive heart and chronic kidney disease with heart failure and stage 1 through stage 4 chronic kidney disease, or unspecified chronic kidney disease (principal); I63.9 Cerebral infarction, unspecified; J11.00 Influenza due to unidentified influenza virus with unspecified type of pneumonia; N17.9 Acute kidney failure, unspecified; G93.40 Encephalopathy, unspecified; E11.22 Type 2 diabetes mellitus with diabetic chronic kidney disease; N18.3 Chronic kidney disease, stage 3 (moderate); E11.649 Type 2 diabetes mellitus with hypoglycemia without coma; I50.23 Acute on chronic systolic (congestive) heart failure; I24.8 Other forms of acute ischemic heart disease; Z68.41 Body mass index [BMI] 40.0-44.9, adult; I42.9 Cardiomyopathy, unspecified; I95.1 Orthostatic hypotension; Z95.810 Presence of automatic (implantable) cardiac defibrillator; I25.10 Atherosclerotic heart disease of native coronary artery without angina pectoris; E04.1 Nontoxic single thyroid nodule; Z88.0 Allergy status to penicillin; D64.9 Anemia, unspecified; E66.01 Morbid (severe) obesity due to excess calories
CPT/HCPCS: 36415; 36416; 70450; 71010; 71020; 71250; 74177; 76536; 80048; 80053; 82553; 82565; 82805; 83735; 83880; 84484; 84702; 85007; 85014; 85018; 85025; 85027; 85049; 85610; 85730; 93005; 93010; 93306; 93798; 93880; 94640; 94660; 95816; 95819; A4216; G8978-GP-CJ; G8979-GP-CH; G8987-GO-CL; G8987-GO-CM; G8988-GO-CJ; G8996-GN-CI; G8996-GN-CN; G8997-GN-CI; G8997-GN-CJ; J0696; J1650; J1940; J1956; J7620